=== PATIENT | male | born 1965 | race Caucasian/White ===

== ENCOUNTER 2019-08-11 10:24 | Inpatient (IN) | payer MEDICAID ==
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
[2019-08-11] MEDS ORDERED: HYDROmorphone 1 MG/ML Syringe IVPUSH ONE ×2 (11:00→14:19)
[2019-08-11] MEDS ORDERED: Metoclopramide 10 MG/2 ML SDV IVPUSH ONE (11:00)
[2019-08-11] MEDS ORDERED: Dextrose 5%-0.9% NaCl 1,000 ML IV SCH (11:00)
[2019-08-11] MEDS ORDERED: Iopamidol 612 MG/ML 100 ML Bottle IVPUSH ONE (12:23)
[2019-08-11] MEDS ORDERED: Diatrizoate Meglumine/Diatrizoate Sodium 37% 120 ML Bottle PO ONE (12:23)
[2019-08-11] MEDS ORDERED: Iopamidol 612 MG/ML 50 ML SDV IVPUSH ONE (12:23)
[2019-08-11] MEDS ORDERED: Sodium Chloride 0.9% 10 ML Syringe FLUSH ONE (12:23)
--- NOTE | 2019-08-11 12:40 | CR ---
Chest: PA view of the chest was obtained. Comparison: No prior chest x-ray. Heart size is normal. Tortuous thoracic aorta is seen. Lungs are clear with no acute parenchymal change. Impression: 1. Nothing acute is seen on PA chest x-ray. Diagnostic code #1 This report was dictated in [place] Standard Time
--- NOTE | 2019-08-11 12:40 | CR ---
Abdomen: Supine view of the abdomen was obtained. Comparison: No previous abdominal x-ray. Surgical clips are seen from prior cholecystectomy. Bowel gas pattern appears normal. Other surgical clips are seen within the abdomen. Calcifications are noted overlying the right kidney presumably due to nonobstructing renal calculi. Calcifications are noted within the pelvis compatible with phleboliths. Bony structures appear within normal limits for the patient's age. Impression: 1. Findings as noted above. 2. Nothing acute is seen. Diagnostic code #2 This report was dictated in [place] Standard Time
[2019-08-11] MEDS ORDERED: Ondansetron 4 MG/2 ML SDV IVPUSH ONE (14:19)
--- NOTE | 2019-08-11 14:21 | CT ---
CT abdomen and pelvis Technique: Multiple axial sections were obtained from above the dome of the diaphragm inferiorly through the pubic symphysis. Intravenous contrast and oral contrast was utilized. Delayed images were also obtained through the abdomen and pelvis. Comparison: No prior abdominal imaging. Findings: Small bowel is mildly dilated. There is an anterior abdominal wall hernia being seen to the right of the umbilicus which contains a loop of small bowel. This hernia appears to be the etiology of the small bowel dilatation. Other findings: Visualized lung bases showed nothing acute. Liver contains no focal abnormality. Spleen appears within normal limits. Adrenal glands show no nodule. Surgical clips seen from prior cholecystectomy. Pancreas is within normal limits. Kidneys show symmetric contrast enhancement without hydronephrosis or mass. Cysts are noted within both kidneys. Several nonobstructing calculi are seen within the right kidney with largest measuring about 8 mm. Aorta shows no aneurysm with atherosclerotic calcification. No retroperitoneal adenopathy or mesenteric abnormalities are seen. Delayed images show contrast within both ureters and within the bladder. No pelvic mass or adenopathy is seen. Bladder is somewhat enlarged containing urine. Bone window settings show mild scattered degenerative change within the spine. 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 Impression: 1. Mildly dilated small bowel which is felt to be caused by an anterior abdominal wall hernia to the right of the umbilicus. 2. Other findings believed to be incidental as noted above. Diagnostic code #3 Study was dictated in [place] Standard Time
[2019-08-11] MEDS ORDERED: Lactated Ringers 1,000 ML IV SCH (14:30)
[2019-08-11] MEDS ORDERED: Lidocaine 2% Jelly 10 ML Urojet MUCMEM ONE ×2 (16:02→16:08)
[2019-08-11] MEDS ORDERED: LORazepam 2 MG/ML SDV IV PRN (17:02)
[2019-08-11] MEDS ORDERED: Albuterol/Ipratropium 3.0-0.5 MG/3 ML Neb Soln NEB PRN (17:02)
[2019-08-11] MEDS ORDERED: Ondansetron 4 MG/2 ML SDV IV PRN (17:02)
[2019-08-11] MEDS: Lactated Ringers 1,000 ML IV SCH (17:25)
[2019-08-11] MEDS: HYDROmorphone 0.5 MG/0.5 ML Syringe IVPUSH PRN ×2 (17:25→21:11)
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
[2019-08-11] MEDS ORDERED: FLU Vacc QS2019-20(6MOS+)/PF 60 MCG/0.5 ML SYRINGE IM ONE (17:30)
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
[2019-08-11] MEDS: Pantoprazole 40 MG Vial IV SCH (20:41)
[2019-08-12] MEDS: HYDROmorphone 0.5 MG/0.5 ML Syringe IVPUSH PRN ×3 (00:59→11:27)
[2019-08-12] MEDS: Lactated Ringers 1,000 ML IV SCH ×3 (00:59→17:20)
[2019-08-12] MEDS: Pantoprazole 40 MG Vial IV SCH ×2 (05:39→17:16)
--- NOTE | 2019-08-12 08:54 | PCM.PN ---
- General Info Date of Service: 08/12/19 Admission Dx/Problem (Free Text): Admission Diagnosis/Problem Admission Diagnosis/Problem Abdominal wall hernia Functional Status: Reports: Pain Controlled, Tolerating Diet, Ambulating, Urinating. Denies: New Symptoms - Review of Systems General: Reports: No Symptoms. Denies: Fever, Weakness, Fatigue, Malaise, Chills HEENT: Reports: No Symptoms. Denies: Headaches, Sore Throat Pulmonary: Reports: No Symptoms. Denies: Shortness of Breath, Pleuritic Chest Pain, Cough, Sputum, Wheezing Cardiovascular: Reports: No Symptoms. Denies: Chest Pain, Palpitations Gastrointestinal: Reports: Flatus. Denies: Abdominal Pain (None currenlty but does wax and wane ), Constipation, Diarrhea, Nausea, Vomiting Genitourinary: Reports: No Symptoms. Denies: Pain Musculoskeletal: Reports: No Symptoms Skin: Reports: No Symptoms. Denies: Cyanosis Neurological: Reports: No Symptoms. Denies: Confusion Psychiatric: Reports: No Symptoms - Patient Data Vitals - Most Recent: Last Vital Signs Temp 98.1 F 08/12/19 05:39 Pulse 84 08/12/19 05:39 Resp 20 08/12/19 05:39 BP 148/96 H 08/12/19 05:39 Pulse Ox 95 08/12/19 05:39 Weight - Most Recent: 244 lb 3.2 oz I&O - Last 24 Hours: Intake & Output 08/11/19 08/12/19 08/12/19 22:59 06:59 14:59 Intake Total 1577 Output Total 200 1150 Balance -200 427 Lab Results Last 24 Hours: Laboratory Results - last 24 hr 08/11/19 08/11/19 08/11/19 Range/Units 11:30 11:30 11:30 WBC 11.87 H (4.23-9.07) K/mm3 RBC 5.65 (4.63-6.08) M/mm3 Hgb 16.8 (13.7-17.5) gm/dl Hct 50.2 (40.1-51.0) % MCV 88.8 (79.0-92.2) fl MCH 29.7 (25.7-32.2) pg MCHC 33.5 (32.2-35.5) g/dl RDW Std Deviation 44.4 H (35.1-43.9) fL Plt Count 283 (163-337) K/mm3 MPV 9.8 (9.4-12.3) fl Neut % (Auto) 77.0 H (34.0-67.9) % Lymph % (Auto) 14.4 L (21.8-53.1) % [place] % (Auto) 7.9 (5.3-12.2) % Eos % (Auto) 0.4 L (0.8-7.0) Baso % (Auto) 0.1 (0.1-1.2) % Neut # (Auto) 9.14 H (1.78-5.38) K/mm3 Lymph # (Auto) 1.71 (1.32-3.57) K/mm3 [place] # (Auto) 0.94 H (0.30-0.82) K/mm3 Eos # (Auto) 0.05 (0.04-0.54) K/mm3 Baso # (Auto) 0.01 (0.01-0.08) K/mm3 Manual Slide Review Normal smear PT 11.0 (9.7-12.0) SECONDS INR 1.01 APTT 31 (22-31) SECONDS Sodium 139 (136-145) mEq/L Potassium 4.1 (3.5-5.1) mEq/L Chloride 103 (98-107) mEq/L Carbon Dioxide 26 (21-32) mEq/L Anion Gap 14.1 (5-15) BUN 17 (7-18) mg/dL Creatinine 0.9 (0.7-1.3) mg/dL Est Cr Clr Drug Dosing 99.94 mL/min Estimated GFR (MDRD) > 60 (>60) mL/min BUN/Creatinine Ratio 18.9 H (14-18) Glucose 121 H (74-106) mg/dL Lactic Acid (0.4-2.0) mmol/L Calcium 9.4 (8.5-10.1) mg/dL Magnesium 2.1 (1.8-2.4) mg/dl Total Bilirubin 0.6 (0.2-1.0) mg/dL AST 23 (15-37) U/L ALT 39 (16-63) U/L Alkaline Phosphatase 108 (46-116) U/L C-Reactive Protein 0.6 (<1.0) mg/dL NT-Pro-B Natriuret Pep (0-125) pg/mL Total Protein 7.6 (6.4-8.2) g/dl Albumin 4.0 (3.4-5.0) g/dl Globulin 3.6 gm/dL Albumin/Globulin Ratio 1.1 (1-2) Lipase 42 L (73-393) U/L Urine Color (Yellow) Urine Appearance (Clear) Urine pH (5.0-8.0) Ur Specific [place] (1.005-1.030) Urine Protein (Negative) Urine Glucose (UA) (Negative) Urine Ketones (Negative) Urine Occult Blood (Negative) Urine Nitrite (Negative) Urine Bilirubin (Negative) Urine Urobilinogen (0.2-1.0) Ur Leukocyte Esterase (Negative) Urine RBC (0-5) /hpf Urine WBC (0-5) /hpf Ur Epithelial Cells (0-5) /hpf Urine Bacteria (FEW) /hpf Hyaline Casts (0-5) /lpf Urine Mucus (FEW) /hpf 08/11/19 08/11/19 08/11/19 Range/Units 11:30 11:30 14:00 WBC (4.23-9.07) K/mm3 RBC (4.63-6.08) M/mm3 Hgb (13.7-17.5) gm/dl Hct (40.1-51.0) % MCV (79.0-92.2) fl MCH (25.7-32.2) pg MCHC (32.2-35.5) g/dl RDW Std Deviation (35.1-43.9) fL Plt Count (163-337) K/mm3 MPV (9.4-12.3) fl Neut % (Auto) (34.0-67.9) % Lymph % (Auto) (21.8-53.1) % [place] % (Auto) (5.3-12.2) % Eos % (Auto) (0.8-7.0) Baso % (Auto) (0.1-1.2) % Neut # (Auto) (1.78-5.38) K/mm3 Lymph # (Auto) (1.32-3.57) K/mm3 [place] # (Auto) (0.30-0.82) K/mm3 Eos # (Auto) (0.04-0.54) K/mm3 Baso # (Auto) (0.01-0.08) K/mm3 Manual Slide Review PT (9.7-12.0) SECONDS INR APTT (22-31) SECONDS Sodium (136-145) mEq/L Potassium (3.5-5.1) mEq/L Chloride (98-107) mEq/L Carbon Dioxide (21-32) mEq/L Anion Gap (5-15) BUN (7-18) mg/dL Creatinine (0.7-1.3) mg/dL Est Cr Clr Drug Dosing mL/min Estimated GFR (MDRD) (>60) mL/min BUN/Creatinine Ratio (14-18) Glucose (74-106) mg/dL Lactic Acid 1.1 (0.4-2.0) mmol/L Calcium (8.5-10.1) mg/dL Magnesium (1.8-2.4) mg/dl Total Bilirubin (0.2-1.0) mg/dL AST (15-37) U/L ALT (16-63) U/L Alkaline Phosphatase (46-116) U/L C-Reactive Protein (<1.0) mg/dL NT-Pro-B Natriuret Pep 27 (0-125) pg/mL Total Protein (6.4-8.2) g/dl Albumin (3.4-5.0) g/dl Globulin gm/dL Albumin/Globulin Ratio (1-2) Lipase (73-393) U/L Urine Color Yellow (Yellow) Urine Appearance Clear (Clear) Urine pH 7.0 (5.0-8.0) Ur Specific [place] 1.025 (1.005-1.030) Urine Protein Trace H (Negative) Urine Glucose (UA) Negative (Negative) Urine Ketones Negative (Negative) Urine Occult Blood Negative (Negative) Urine Nitrite Negative (Negative) Urine Bilirubin Negative (Negative) Urine Urobilinogen 0.2 (0.2-1.0) Ur Leukocyte Esterase Trace H (Negative) Urine RBC 0-5 (0-5) /hpf Urine WBC 0-5 (0-5) /hpf Ur Epithelial Cells 0-5 (0-5) /hpf Urine Bacteria Few (FEW) /hpf Hyaline Casts 0-5 (0-5) /lpf Urine Mucus Not seen (FEW) /hpf 08/12/19 08/12/19 Range/Units 05:25 05:28 WBC 7.86 (4.23-9.07) K/mm3 RBC 5.07 (4.63-6.08) M/mm3 Hgb 15.1 D (13.7-17.5) gm/dl Hct 46.0 (40.1-51.0) % MCV 90.7 (79.0-92.2) fl MCH 29.8 (25.7-32.2) pg MCHC 32.8 (32.2-35.5) g/dl RDW Std Deviation 45.1 H (35.1-43.9) fL Plt Count 223 (163-337) K/mm3 MPV 10.2 (9.4-12.3) fl Neut % (Auto) 56.7 (34.0-67.9) % Lymph % (Auto) 30.7 (21.8-53.1) % [place] % (Auto) 9.8 (5.3-12.2) % Eos % (Auto) 2.2 (0.8-7.0) Baso % (Auto) 0.3 (0.1-1.2) % Neut # (Auto) 4.47 (1.78-5.38) K/mm3 Lymph # (Auto) 2.41 (1.32-3.57) K/mm3 [place] # (Auto) 0.77 (0.30-0.82) K/mm3 Eos # (Auto) 0.17 (0.04-0.54) K/mm3 Baso # (Auto) 0.02 (0.01-0.08) K/mm3 Manual Slide Review PT (9.7-12.0) SECONDS INR APTT (22-31) SECONDS Sodium 137 (136-145) mEq/L Potassium 3.9 (3.5-5.1) mEq/L Chloride 102 (98-107) mEq/L Carbon Dioxide 27 (21-32) mEq/L Anion Gap 11.9 (5-15) BUN 15 (7-18) mg/dL Creatinine 1.0 (0.7-1.3) mg/dL Est Cr Clr Drug Dosing 89.94 mL/min Estimated GFR (MDRD) > 60 (>60) mL/min BUN/Creatinine Ratio 15.0 (14-18) Glucose 100 (74-106) mg/dL Lactic Acid (0.4-2.0) mmol/L Calcium 8.6 (8.5-10.1) mg/dL Magnesium 2.0 (1.8-2.4) mg/dl Total Bilirubin 0.7 (0.2-1.0) mg/dL AST 20 (15-37) U/L ALT 31 (16-63) U/L Alkaline Phosphatase 93 (46-116) U/L C-Reactive Protein 1.9 H* (<1.0) mg/dL NT-Pro-B Natriuret Pep (0-125) pg/mL Total Protein 6.5 (6.4-8.2) g/dl Albumin 3.3 L (3.4-5.0) g/dl Globulin 3.2 gm/dL Albumin/Globulin Ratio 1.0 (1-2) Lipase (73-393) U/L Urine Color (Yellow) Urine Appearance (Clear) Urine pH (5.0-8.0) Ur Specific [place] (1.005-1.030) Urine Protein (Negative) Urine Glucose (UA) (Negative) Urine Ketones (Negative) Urine Occult Blood (Negative) Urine Nitrite (Negative) Urine Bilirubin (Negative) Urine Urobilinogen (0.2-1.0) Ur Leukocyte Esterase (Negative) Urine RBC (0-5) /hpf Urine WBC (0-5) /hpf Ur Epithelial Cells (0-5) /hpf Urine Bacteria (FEW) /hpf Hyaline Casts (0-5) /lpf Urine Mucus (FEW) /hpf Med Orders - Current: Current Medications Albuterol/Ipratropium (Duoneb 3.0-0.5 Mg/3 Ml) 3 ml NEB Q4H PRN PRN Reason: Shortness Of Breath/wheezing Hydromorphone HCl (Dilaudid) 0.5 mg IVPUSH Q2H PRN PRN Reason: Pain (severe 7-10) Last Admin: 08/12/19 05:39 Dose: 0.5 mg Lactated Ringer's (Ringers, Lactated) 1,000 mls @ 125 mls/hr IV ASDIRECTED [facility] Last Admin: 08/12/19 08:51 Dose: 125 mls/hr Lorazepam (Ativan) 1 mg IV Q4H PRN PRN Reason: Anxiety Ondansetron HCl (Zofran) 4 mg IV Q4H PRN PRN Reason: Nausea/Vomiting Pantoprazole Sodium (Protonix Iv) 40 mg IV Q12H [facility] Last Admin: 08/12/19 05:39 Dose: 40 mg Discontinued Medications Diatrizoate Meglum/Diatrizoate Sod (Gastrografin 37%) 90 ml PO ONETIME ONE Stop: 08/11/19 12:24 Last Admin: 08/11/19 13:27 Dose: 90 ml Hydromorphone HCl (Dilaudid) 1 mg IVPUSH ONETIME ONE Stop: 08/11/19 11:01 Last Admin: 08/11/19 11:36 Dose: 1 mg Hydromorphone HCl (Dilaudid) 1 mg IVPUSH ONETIME ONE Stop: 08/11/19 14:20 Last Admin: 08/11/19 14:33 Dose: 1 mg Dextrose/Sodium Chloride (Dextrose 5%-Normal Saline) 1,000 mls @ 500 mls/hr IV ASDIRECTED [facility] Last Admin: 08/11/19 11:39 Dose: 500 mls/hr Lactated Ringer's (Ringers, Lactated) 1,000 mls @ 500 mls/hr IV ASDIRECTED [facility] Last Admin: 08/11/19 14:28 Dose: 500 mls/hr Influenza Virus Vaccine (Pharmacy To Dose - Influenza Vaccine) 0 each IM ONETIME ONE Stop: 08/11/19 17:13 Influenza Virus Vaccine (Fluzone Quad Syringe) 60 mcg IM .ONCE ONE Stop: 08/11/19 17:31 Iopamidol (Isovue-300 (61%)) 100 ml IVPUSH ONETIME ONE Stop: 08/11/19 12:24 Last Admin: 08/11/19 13:27 Dose: 100 ml Iopamidol (Isovue-300 (61%)) 50 ml IVPUSH ONETIME ONE Stop: 08/11/19 12:24 Last Admin: 08/11/19 20:07 Dose: Not Given Lidocaine HCl (Xylocaine 2% Jelly) 10 ml MUCMEM ONETIME ONE Stop: 08/11/19 16:03 Last Admin: 08/11/19 17:18 Dose: Not Given Lidocaine HCl (Xylocaine 2% Jelly) 10 ml MUCMEM ONETIME ONE Stop: 08/11/19 16:09 Last Admin: 08/11/19 17:18 Dose: Not Given Metoclopramide HCl (Reglan) 10 mg IVPUSH ONETIME ONE Stop: 08/11/19 11:01 Last Admin: 08/11/19 11:37 Dose: 10 mg Ondansetron HCl (Zofran) 4 mg IVPUSH ONETIME ONE Stop: 08/11/19 14:20 Last Admin: 08/11/19 14:33 Dose: 4 mg Sodium Chloride (Saline Flush) 10 ml FLUSH ONETIME ONE Stop: 08/11/19 12:24 Last Admin: 08/11/19 13:27 Dose: 10 ml - Exam Quality Assessment: DVT Prophylaxis General: Alert, Oriented, Cooperative, No Acute Distress HEENT: Pupils Equal, Pupils Reactive, Mucous Membr. Moist/[place] Neck: Supple, Trachea Midline Cardiovascular: Regular Rate, Regular Rhythm GI/Abdominal Exam: Normal Bowel Sounds, Non-Tender, No Abnormal Bruit, Distended (Patient reports this is chronic for him) (Male) Exam: Deferred Back Exam: Normal Inspection, Full Range of Motion Extremities: Normal Inspection, Normal Range of Motion, Non-Tender, No Pedal Edema, Normal Capillary Refill Skin: Warm, Dry, Intact Neurological: No New Focal Deficit Psy/Mental Status: Alert, Normal Affect, Normal Mood Sepsis Event Note - Evaluation Sepsis Screening Result: No Definite Risk - Focused Exam Vital Signs: Vital Signs Temp Pulse Resp BP Pulse Ox 08/12/19 05:39 98.1 F 84 20 148/96 H 95 Date Exam was Performed: 08/12/19 Time Exam was Performed: 14:04 - Problem List & Annotations (1) Hernia of anterior abdominal wall SNOMED Code(s): 185325444 Code(s): K43.9 - VENTRAL HERNIA WITHOUT OBSTRUCTION OR GANGRENE Status: Acute Priority: High Current Visit: Yes (2) Partial obstruction of small intestine SNOMED Code(s): 224150463 Code(s): K56.600 - PARTIAL INTESTINAL OBSTRUCTION, UNSPECIFIED TO CAUSE Status: Acute Priority: High Current Visit: Yes (3) History of anxiety SNOMED Code(s): 076251503 Code(s): Z86.59 - PERSONAL HISTORY OF OTHER MENTAL AND BEHAVIORAL DISORDERS Status: Chronic Priority: Low Current Visit: No - Problem List Review Problem List Initiated/Reviewed/Updated: Yes - Plan Plan:: Assessment * Partial small bowel obstruction likely due to ventral incisional hernia that is easily reducible * CT abdomen showed mildly dilated small bowel which is felt to be caused by an anterior abdominal wall hernia to the right of the umbilicus. * History of anxiety disorder * Takes as needed Ativan Plan * Admit to medical floor on telemetry * Pain management initially with IV pain medication * Ambulation * N.p.o. * NG tube to low intermittent suction * IV fluids as ordered * Ativan as needed for anxiety * Dr. Luna and surgery is consulted * VTE prophylaxis with SCDs * CODE STATUS full code * Length of stay 1 to 2 more days.
--- NOTE | 2019-08-12 12:41 | PCM.SURGPN ---
- General Info Date of Service: 08/12/19 Post-Op Diagnosis: bowel obstruction Pain Score: 2 - Review of Systems General: Reports: No Symptoms HEENT: Reports: No Symptoms Pulmonary: Reports: No Symptoms Cardiovascular: Reports: No Symptoms Gastrointestinal: Reports: No Symptoms Genitourinary: Reports: No Symptoms Musculoskeletal: Reports: No Symptoms Skin: Reports: No Symptoms Neurological: Reports: No Symptoms - Patient Data Vitals - Most Recent: Last Vital Signs Temp 98.1 F 08/12/19 05:39 Pulse 84 08/12/19 05:39 Resp 20 08/12/19 05:39 BP 148/96 H 08/12/19 05:39 Pulse Ox 95 08/12/19 05:39 Weight - Most Recent: 110.767 kg I&O - Last 24 Hours: Intake & Output 08/11/19 08/12/19 08/12/19 22:59 06:59 14:59 Intake Total 1577 Output Total 200 1150 Balance -200 427 Lab Results Last 24 Hrs: Laboratory Results - last 24 hr 08/11/19 08/11/19 08/12/19 Range/Units 11:30 14:00 05:25 WBC (4.23-9.07) K/mm3 RBC (4.63-6.08) M/mm3 Hgb (13.7-17.5) gm/dl Hct (40.1-51.0) % MCV (79.0-92.2) fl MCH (25.7-32.2) pg MCHC (32.2-35.5) g/dl RDW Std Deviation (35.1-43.9) fL Plt Count (163-337) K/mm3 MPV (9.4-12.3) fl Neut % (Auto) (34.0-67.9) % Lymph % (Auto) (21.8-53.1) % [place] % (Auto) (5.3-12.2) % Eos % (Auto) (0.8-7.0) Baso % (Auto) (0.1-1.2) % Neut # (Auto) (1.78-5.38) K/mm3 Lymph # (Auto) (1.32-3.57) K/mm3 [place] # (Auto) (0.30-0.82) K/mm3 Eos # (Auto) (0.04-0.54) K/mm3 Baso # (Auto) (0.01-0.08) K/mm3 Manual Slide Review Normal smear Sodium 137 (136-145) mEq/L Potassium 3.9 (3.5-5.1) mEq/L Chloride 102 (98-107) mEq/L Carbon Dioxide 27 (21-32) mEq/L Anion Gap 11.9 (5-15) BUN 15 (7-18) mg/dL Creatinine 1.0 (0.7-1.3) mg/dL Est Cr Clr Drug Dosing 89.94 mL/min Estimated GFR (MDRD) > 60 (>60) mL/min BUN/Creatinine Ratio 15.0 (14-18) Glucose 100 (74-106) mg/dL Calcium 8.6 (8.5-10.1) mg/dL Magnesium 2.0 (1.8-2.4) mg/dl Total Bilirubin 0.7 (0.2-1.0) mg/dL AST 20 (15-37) U/L ALT 31 (16-63) U/L Alkaline Phosphatase 93 (46-116) U/L C-Reactive Protein 1.9 H* (<1.0) mg/dL Total Protein 6.5 (6.4-8.2) g/dl Albumin 3.3 L (3.4-5.0) g/dl Globulin 3.2 gm/dL Albumin/Globulin Ratio 1.0 (1-2) Urine Color Yellow (Yellow) Urine Appearance Clear (Clear) Urine pH 7.0 (5.0-8.0) Ur Specific [place] 1.025 (1.005-1.030) Urine Protein Trace H (Negative) Urine Glucose (UA) Negative (Negative) Urine Ketones Negative (Negative) Urine Occult Blood Negative (Negative) Urine Nitrite Negative (Negative) Urine Bilirubin Negative (Negative) Urine Urobilinogen 0.2 (0.2-1.0) Ur Leukocyte Esterase Trace H (Negative) Urine RBC 0-5 (0-5) /hpf Urine WBC 0-5 (0-5) /hpf Ur Epithelial Cells 0-5 (0-5) /hpf Urine Bacteria Few (FEW) /hpf Hyaline Casts 0-5 (0-5) /lpf Urine Mucus Not seen (FEW) /hpf 08/12/19 Range/Units 05:28 WBC 7.86 (4.23-9.07) K/mm3 RBC 5.07 (4.63-6.08) M/mm3 Hgb 15.1 D (13.7-17.5) gm/dl Hct 46.0 (40.1-51.0) % MCV 90.7 (79.0-92.2) fl MCH 29.8 (25.7-32.2) pg MCHC 32.8 (32.2-35.5) g/dl RDW Std Deviation 45.1 H (35.1-43.9) fL Plt Count 223 (163-337) K/mm3 MPV 10.2 (9.4-12.3) fl Neut % (Auto) 56.7 (34.0-67.9) % Lymph % (Auto) 30.7 (21.8-53.1) % [place] % (Auto) 9.8 (5.3-12.2) % Eos % (Auto) 2.2 (0.8-7.0) Baso % (Auto) 0.3 (0.1-1.2) % Neut # (Auto) 4.47 (1.78-5.38) K/mm3 Lymph # (Auto) 2.41 (1.32-3.57) K/mm3 [place] # (Auto) 0.77 (0.30-0.82) K/mm3 Eos # (Auto) 0.17 (0.04-0.54) K/mm3 Baso # (Auto) 0.02 (0.01-0.08) K/mm3 Manual Slide Review Sodium (136-145) mEq/L Potassium (3.5-5.1) mEq/L Chloride (98-107) mEq/L Carbon Dioxide (21-32) mEq/L Anion Gap (5-15) BUN (7-18) mg/dL Creatinine (0.7-1.3) mg/dL Est Cr Clr Drug Dosing mL/min Estimated GFR (MDRD) (>60) mL/min BUN/Creatinine Ratio (14-18) Glucose (74-106) mg/dL Calcium (8.5-10.1) mg/dL Magnesium (1.8-2.4) mg/dl Total Bilirubin (0.2-1.0) mg/dL AST (15-37) U/L ALT (16-63) U/L Alkaline Phosphatase (46-116) U/L C-Reactive Protein (<1.0) mg/dL Total Protein (6.4-8.2) g/dl Albumin (3.4-5.0) g/dl Globulin gm/dL Albumin/Globulin Ratio (1-2) Urine Color (Yellow) Urine Appearance (Clear) Urine pH (5.0-8.0) Ur Specific [place] (1.005-1.030) Urine Protein (Negative) Urine Glucose (UA) (Negative) Urine Ketones (Negative) Urine Occult Blood (Negative) Urine Nitrite (Negative) Urine Bilirubin (Negative) Urine Urobilinogen (0.2-1.0) Ur Leukocyte Esterase (Negative) Urine RBC (0-5) /hpf Urine WBC (0-5) /hpf Ur Epithelial Cells (0-5) /hpf Urine Bacteria (FEW) /hpf Hyaline Casts (0-5) /lpf Urine Mucus (FEW) /hpf Med Orders - Current: Current Medications Albuterol/Ipratropium (Duoneb 3.0-0.5 Mg/3 Ml) 3 ml NEB Q4H PRN PRN Reason: Shortness Of Breath/wheezing Hydromorphone HCl (Dilaudid) 0.5 mg IVPUSH Q2H PRN PRN Reason: Pain (severe 7-10) Last Admin: 08/12/19 11:27 Dose: 0.5 mg Lactated Ringer's (Ringers, Lactated) 1,000 mls @ 125 mls/hr IV ASDIRECTED [facility] Last Admin: 08/12/19 08:51 Dose: 125 mls/hr Lorazepam (Ativan) 1 mg IV Q4H PRN PRN Reason: Anxiety Ondansetron HCl (Zofran) 4 mg IV Q4H PRN PRN Reason: Nausea/Vomiting Pantoprazole Sodium (Protonix Iv) 40 mg IV Q12H [facility] Last Admin: 08/12/19 05:39 Dose: 40 mg Discontinued Medications Diatrizoate Meglum/Diatrizoate Sod (Gastrografin 37%) 90 ml PO ONETIME ONE Stop: 08/11/19 12:24 Last Admin: 08/11/19 13:27 Dose: 90 ml Hydromorphone HCl (Dilaudid) 1 mg IVPUSH ONETIME ONE Stop: 08/11/19 11:01 Last Admin: 08/11/19 11:36 Dose: 1 mg Hydromorphone HCl (Dilaudid) 1 mg IVPUSH ONETIME ONE Stop: 08/11/19 14:20 Last Admin: 08/11/19 14:33 Dose: 1 mg Dextrose/Sodium Chloride (Dextrose 5%-Normal Saline) 1,000 mls @ 500 mls/hr IV ASDIRECTED [facility] Last Admin: 08/11/19 11:39 Dose: 500 mls/hr Lactated Ringer's (Ringers, Lactated) 1,000 mls @ 500 mls/hr IV ASDIRECTED [facility] Last Admin: 08/11/19 14:28 Dose: 500 mls/hr Influenza Virus Vaccine (Pharmacy To Dose - Influenza Vaccine) 0 each IM ONETIME ONE Stop: 08/11/19 17:13 Influenza Virus Vaccine (Fluzone Quad Syringe) 60 mcg IM .ONCE ONE Stop: 08/11/19 17:31 Iopamidol (Isovue-300 (61%)) 100 ml IVPUSH ONETIME ONE Stop: 08/11/19 12:24 Last Admin: 08/11/19 13:27 Dose: 100 ml Iopamidol (Isovue-300 (61%)) 50 ml IVPUSH ONETIME ONE Stop: 08/11/19 12:24 Last Admin: 08/11/19 20:07 Dose: Not Given Lidocaine HCl (Xylocaine 2% Jelly) 10 ml MUCMEM ONETIME ONE Stop: 08/11/19 16:03 Last Admin: 08/11/19 17:18 Dose: Not Given Lidocaine HCl (Xylocaine 2% Jelly) 10 ml MUCMEM ONETIME ONE Stop: 08/11/19 16:09 Last Admin: 08/11/19 17:18 Dose: Not Given Metoclopramide HCl (Reglan) 10 mg IVPUSH ONETIME ONE Stop: 08/11/19 11:01 Last Admin: 08/11/19 11:37 Dose: 10 mg Ondansetron HCl (Zofran) 4 mg IVPUSH ONETIME ONE Stop: 08/11/19 14:20 Last Admin: 08/11/19 14:33 Dose: 4 mg Sodium Chloride (Saline Flush) 10 ml FLUSH ONETIME ONE Stop: 08/11/19 12:24 Last Admin: 08/11/19 13:27 Dose: 10 ml - Exam General: Alert, Oriented, Cooperative, No Acute Distress Lungs: Clear to Auscultation Cardiovascular: Regular Rate, Regular Rhythm, No Murmurs GI/Abdominal Exam: Normal Bowel Sounds, Soft, Non-Tender, No Distention Sepsis Event Note - Evaluation Sepsis Screening Result: No Definite Risk - Focused Exam Vital Signs: Vital Signs Temp Pulse Resp BP Pulse Ox 08/12/19 05:39 98.1 F 84 20 148/96 H 95 Date Exam was Performed: 08/12/19 Time Exam was Performed: 12:38 - Problem List Review Problem List Initiated/Reviewed/Updated: No - My Orders Last 24 Hours: Active Orders 24 hr Category Date Time Status Admission Status [Patient Status] [ADT] Routine ADT 08/11/19 16:03 Active Antiembolic Devices [RC] DAILY Care 08/11/19 17:06 Active Gastrointestinal Tube Mgmt [RC] 10,16,22,04 Care 08/11/19 16:01 Active Influenza Vaccine Charge [RC] .DISCHARGE Care 08/11/19 17:12 Active Notify Provider Consults [RC] ASDIRECTED Care 08/11/19 17:06 Active Oxygen Therapy [RC] PRN Care 08/11/19 17:02 Active RT Aerosol Therapy [RC] ASDIRECTED Care 08/11/19 17:06 Active Up ad [place] [RC] ASDIRECTED Care 08/11/19 17:02 Active VTE/DVT Education [RC] DAILY Care 08/11/19 17:02 Active Vital Signs [RC] 10,16,22,04 Care 08/11/19 17:02 Active Consult to Physician [CONS] Routine Cons 08/11/19 17:02 Active Albuterol/Ipratropium [DuoNeb 3.0-0.5 MG/3 ML] Med 08/11/19 17:02 Active 3 ml NEB Q4H PRN HYDROmorphone [Dilaudid] Med 08/11/19 17:02 Active 0.5 mg IVPUSH Q2H PRN LORazepam [Ativan] Med 08/11/19 17:02 Active 1 mg IV Q4H PRN Lactated Ringers [Ringers, Lactated] 1,000 ml Med 08/11/19 17:15 Active IV ASDIRECTED Ondansetron [Zofran] Med 08/11/19 17:02 Active 4 mg IV Q4H PRN Pantoprazole [ProTONIX IV] Med 08/11/19 18:00 Active 40 mg IV Q12H Nasogastric Orogastric Tube Insertion [OM.PC] Routine Oth 08/11/19 16:01 Ordered Sequential Compression Device [OM.PC] Per Unit Routine Oth 08/11/19 17:03 Ordered Resuscitation Status Routine Resus Stat 08/11/19 17:02 Ordered Medication Orders Albuterol/Ipratropium (Duoneb 3.0-0.5 Mg/3 Ml) 3 ml NEB Q4H PRN PRN Reason: Shortness Of Breath/wheezing Hydromorphone HCl (Dilaudid) 0.5 mg IVPUSH Q2H PRN PRN Reason: Pain (severe 7-10) Last Admin: 08/12/19 11:27 Dose: 0.5 mg Admin: 08/12/19 05:39 Dose: 0.5 mg Admin: 08/12/19 00:59 Dose: 0.5 mg Admin: 08/11/19 21:11 Dose: 0.5 mg Admin: 08/11/19 17:25 Dose: 0.5 mg Lactated Ringer's (Ringers, Lactated) 1,000 mls @ 125 mls/hr IV ASDIRECTED ANUPAM Last Admin: 08/12/19 08:51 Dose: 125 mls/hr Infusion: 08/12/19 08:51 Dose: 125 mls/hr Admin: 08/12/19 00:59 Dose: 125 mls/hr Infusion: 08/12/19 00:59 Dose: 125 mls/hr Admin: 08/11/19 17:25 Dose: 125 mls/hr Lorazepam (Ativan) 1 mg IV Q4H PRN PRN Reason: Anxiety Ondansetron HCl (Zofran) 4 mg IV Q4H PRN PRN Reason: Nausea/Vomiting Pantoprazole Sodium (Protonix Iv) 40 mg IV Q12H [facility] Last Admin: 08/12/19 05:39 Dose: 40 mg Admin: 01/20/20 20:41 Dose: 40 mg - Plan Plan (Free Text/Narrative):: HD1 for bowel obstruction. Belly soft, non-tender and patient is passing some flatus today. NGT has 700 cc bilious. - Plan will be to continue NGT and bowel rest today. If patient continues to be symptom free and NGT output decreases we may consider clamp trial later today.
[2019-08-13] MEDS: Lactated Ringers 1,000 ML IV SCH (01:06)
[2019-08-13] MEDS: Pantoprazole 40 MG Vial IV SCH (05:53)
--- NOTE | 2019-08-13 07:35 | PCM.SURGPN ---
- General Info Date of Service: 08/13/19 Post-Op Diagnosis: Bowel obstruction Functional Status: Reports: Pain Controlled - Review of Systems General: Reports: No Symptoms HEENT: Reports: No Symptoms Pulmonary: Reports: No Symptoms Cardiovascular: Reports: No Symptoms Gastrointestinal: Reports: No Symptoms - Patient Data Vitals - Most Recent: Last Vital Signs Temp 97.9 F 08/12/19 21:12 Pulse 87 08/12/19 21:12 Resp 20 08/12/19 21:12 BP 140/83 08/12/19 21:12 Pulse Ox 95 08/12/19 21:12 Weight - Most Recent: 110.767 kg I&O - Last 24 Hours: Intake & Output 08/12/19 08/13/19 08/13/19 22:59 06:59 14:59 Intake Total 1410 Output Total 2200 Balance -790 Lab Results Last 24 Hrs: Laboratory Results - last 24 hr 08/12/19 08/13/19 08/13/19 Range/Units 05:25 05:18 05:18 WBC 7.08 (4.23-9.07) K/mm3 RBC 5.24 (4.63-6.08) M/mm3 Hgb 15.7 (13.7-17.5) gm/dl Hct 46.6 (40.1-51.0) % MCV 88.9 (79.0-92.2) fl MCH 30.0 (25.7-32.2) pg MCHC 33.7 (32.2-35.5) g/dl RDW Std Deviation 43.1 (35.1-43.9) fL Plt Count 236 (163-337) K/mm3 MPV 9.9 (9.4-12.3) fl Neut % (Auto) 61.7 (34.0-67.9) % Lymph % (Auto) 26.6 (21.8-53.1) % [place] % (Auto) 9.6 (5.3-12.2) % Eos % (Auto) 1.7 (0.8-7.0) Baso % (Auto) 0.3 (0.1-1.2) % Neut # (Auto) 4.37 (1.78-5.38) K/mm3 Lymph # (Auto) 1.88 (1.32-3.57) K/mm3 [place] # (Auto) 0.68 (0.30-0.82) K/mm3 Eos # (Auto) 0.12 (0.04-0.54) K/mm3 Baso # (Auto) 0.02 (0.01-0.08) K/mm3 Sodium 137 135 L (136-145) mEq/L Potassium 3.9 3.8 (3.5-5.1) mEq/L Chloride 102 100 (98-107) mEq/L Carbon Dioxide 27 24 (21-32) mEq/L Anion Gap 11.9 14.8 (5-15) BUN 15 12 (7-18) mg/dL Creatinine 1.0 0.8 (0.7-1.3) mg/dL Est Cr Clr Drug Dosing 89.94 112.43 mL/min Estimated GFR (MDRD) > 60 > 60 (>60) mL/min BUN/Creatinine Ratio 15.0 15.0 (14-18) Glucose 100 88 (74-106) mg/dL Calcium 8.6 8.9 (8.5-10.1) mg/dL Magnesium 2.0 2.1 (1.8-2.4) mg/dl Total Bilirubin 0.7 (0.2-1.0) mg/dL AST 20 (15-37) U/L ALT 31 (16-63) U/L Alkaline Phosphatase 93 (46-116) U/L C-Reactive Protein 1.9 H* (<1.0) mg/dL Total Protein 6.5 (6.4-8.2) g/dl Albumin 3.3 L (3.4-5.0) g/dl Globulin 3.2 gm/dL Albumin/Globulin Ratio 1.0 (1-2) Med Orders - Current: Current Medications Albuterol/Ipratropium (Duoneb 3.0-0.5 Mg/3 Ml) 3 ml NEB Q4H PRN PRN Reason: Shortness Of Breath/wheezing Hydromorphone HCl (Dilaudid) 0.5 mg IVPUSH Q2H PRN PRN Reason: Pain (severe 7-10) Last Admin: 08/12/19 11:27 Dose: 0.5 mg Lactated Ringer's (Ringers, Lactated) 1,000 mls @ 125 mls/hr IV ASDIRECTED [facility] Last Admin: 08/13/19 01:06 Dose: 125 mls/hr Lorazepam (Ativan) 1 mg IV Q4H PRN PRN Reason: Anxiety Ondansetron HCl (Zofran) 4 mg IV Q4H PRN PRN Reason: Nausea/Vomiting Pantoprazole Sodium (Protonix Iv) 40 mg IV Q12H [facility] Last Admin: 08/13/19 05:53 Dose: 40 mg Discontinued Medications Diatrizoate Meglum/Diatrizoate Sod (Gastrografin 37%) 90 ml PO ONETIME ONE Stop: 08/11/19 12:24 Last Admin: 08/11/19 13:27 Dose: 90 ml Hydromorphone HCl (Dilaudid) 1 mg IVPUSH ONETIME ONE Stop: 08/11/19 11:01 Last Admin: 08/11/19 11:36 Dose: 1 mg Hydromorphone HCl (Dilaudid) 1 mg IVPUSH ONETIME ONE Stop: 08/11/19 14:20 Last Admin: 08/11/19 14:33 Dose: 1 mg Dextrose/Sodium Chloride (Dextrose 5%-Normal Saline) 1,000 mls @ 500 mls/hr IV [facility] Last Admin: 08/11/19 11:39 Dose: 500 mls/hr Lactated Ringer's (Ringers, Lactated) 1,000 mls @ 500 mls/hr IV [facility] Last Admin: 08/11/19 14:28 Dose: 500 mls/hr Influenza Virus Vaccine (Pharmacy To Dose - Influenza Vaccine) 0 each IM ONETIME ONE Stop: 08/11/19 17:13 Influenza Virus Vaccine (Fluzone Quad [id number] Syringe) 60 mcg IM .ONCE ONE Stop: 08/11/19 17:31 Iopamidol (Isovue-300 (61%)) 100 ml IVPUSH ONETIME ONE Stop: 08/11/19 12:24 Last Admin: 08/11/19 13:27 Dose: 100 ml Iopamidol (Isovue-300 (61%)) 50 ml IVPUSH ONETIME ONE Stop: 08/11/19 12:24 Last Admin: 08/11/19 20:07 Dose: Not Given Lidocaine HCl (Xylocaine 2% Jelly) 10 ml MUCMEM ONETIME ONE Stop: 08/11/19 16:03 Last Admin: 08/11/19 17:18 Dose: Not Given Lidocaine HCl (Xylocaine 2% Jelly) 10 ml MUCMEM ONETIME ONE Stop: 08/11/19 16:09 Last Admin: 08/11/19 17:18 Dose: Not Given Metoclopramide HCl (Reglan) 10 mg IVPUSH ONETIME ONE Stop: 08/11/19 11:01 Last Admin: 08/11/19 11:37 Dose: 10 mg Ondansetron HCl (Zofran) 4 mg IVPUSH ONETIME ONE Stop: 08/11/19 14:20 Last Admin: 08/11/19 14:33 Dose: 4 mg Sodium Chloride (Saline Flush) 10 ml FLUSH ONETIME ONE Stop: 08/11/19 12:24 Last Admin: 08/11/19 13:27 Dose: 10 ml - Exam General: Alert, Oriented, Cooperative, No Acute Distress HEENT: Pupils Equal Lungs: Clear to Auscultation, Normal Respiratory Effort Cardiovascular: Regular Rate, Regular Rhythm, No Murmurs GI/Abdominal Exam: Normal Bowel Sounds, Soft, Non-Tender, No Organomegaly Sepsis Event Note - Evaluation Sepsis Screening Result: No Definite Risk - Focused Exam Vital Signs: Vital Signs Temp Pulse Resp BP Pulse Ox 08/12/19 21:12 97.9 F 87 20 140/83 95 Date Exam was Performed: 08/13/19 Time Exam was Performed: 07:31 - Problem List Review Problem List Initiated/Reviewed/Updated: No - My Orders Last 24 Hours: Medication Orders Albuterol/Ipratropium (Duoneb 3.0-0.5 Mg/3 Ml) 3 ml NEB Q4H PRN PRN Reason: Shortness Of Breath/wheezing Hydromorphone HCl (Dilaudid) 0.5 mg IVPUSH Q2H PRN PRN Reason: Pain (severe 7-10) Last Admin: 08/12/19 11:27 Dose: 0.5 mg Admin: 08/12/19 05:39 Dose: 0.5 mg Admin: 08/12/19 00:59 Dose: 0.5 mg Admin: 08/11/19 21:11 Dose: 0.5 mg Admin: 08/11/19 17:25 Dose: 0.5 mg Lactated Ringer's (Ringers, Lactated) 1,000 mls @ 125 mls/hr IV ASDIRECTED [facility] Last Admin: 08/13/19 01:06 Dose: 125 mls/hr Infusion: 08/13/19 01:06 Dose: 125 mls/hr Admin: 08/12/19 17:20 Dose: 125 mls/hr Infusion: 08/12/19 16:51 Dose: 125 mls/hr Admin: 08/12/19 08:51 Dose: 125 mls/hr Infusion: 08/12/19 08:51 Dose: 125 mls/hr Admin: 08/12/19 00:59 Dose: 125 mls/hr Infusion: 08/12/19 00:59 Dose: 125 mls/hr Admin: 08/11/19 17:25 Dose: 125 mls/hr Lorazepam (Ativan) 1 mg IV Q4H PRN PRN Reason: Anxiety Ondansetron HCl (Zofran) 4 mg IV Q4H PRN PRN Reason: Nausea/Vomiting Pantoprazole Sodium (Protonix Iv) 40 mg IV Q12H [facility] Last Admin: 08/13/19 05:53 Dose: 40 mg Admin: 08/12/19 17:16 Dose: 40 mg Admin: 08/12/19 05:39 Dose: 40 mg Admin: 08/11/19 20:41 Dose: 40 mg - Assessment Assessment (Free Text/Narrative):: No abdominal cramps anymore, passing flatus and had a BM today. Abd is soft, [place] , NT. - Plan Plan (Free Text/Narrative):: -remove NGT -stop IV fluids -Start clears this morning, advance to regular food for lunch. If doing well, can go home by the end of the day.
[2019-08-13] MEDS ORDERED: LORazepam 0.5 MG Tab PO PRN (07:57)
[2019-08-13] MEDS ORDERED: FLUoxetine 20 MG Cap PO SCH (09:00)
[2019-08-13] MEDS ORDERED: Tamsulosin 0.4 MG Cap.ER PO SCH (09:00)
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
== END 2019-08-13 14:56 | disposition home or self-care (01) | DRG 395 ==
LOC: JD.ED 10:24 → JD.MS 16:03
PROVIDERS: ADMIT Family Medicine; ATTEND Family Medicine
DX: K43.0 Incisional hernia with obstruction, without gangrene (principal); F41.9 Anxiety disorder, unspecified; F17.200 Nicotine dependence, unspecified, uncomplicated; Z79.899 Other long term (current) drug therapy
CPT/HCPCS: 36415; 43752; 71045; 71045-26; 74018; 74018-26; 74177; 74177-26; 80048; 80053; 81001; 83605; 83690; 83735; 83880; 85025; 85610; 85730; 86140; 93005; 93010; 96361; 96374; 96375; 96376; 99285; 99285-25; A9270-GY; C9113; J1170; J2405; J2765; J7042; J7120; Q9963; Q9967